=== PATIENT | female | born 1945 | race Caucasian/White ===

== ENCOUNTER 2018-02-04 17:01 | Emergency (ER) | payer SELFPAY ==
[~2018-02-04] VITALS: Ht 152.4 cm; Wt 74.8 kg
[2018-02-04 17:05] VITALS: Ht 152.4 cm; Wt 74.8 kg
[2018-02-04 18:07] LABS: PLATELET COUNT 178 x10^3mcL (130-400)
[2018-02-04 18:14] LABS: CARBON DIOXIDE 32.5 mmol/L (21-32); CHLORIDE SERUM 104 mmol/L (98-107); CREATININE SERUM 0.8 mg/dL (0.6-1.0); GLUCOSE SERUM 107 mg/dL (74-106); POTASSIUM SERUM 4.1 mmol/L (3.5-5.1); SODIUM SERUM 140 mmol/L (136-145)
[2018-02-04 18:18] LABS: ALKALINE PHOSPHATASE 91 U/L (46-116); ALT/SGPT 23 U/L (14-59); AST/SGOT 39 U/L (15-37); BILIRUBIN TOTAL 0.3 mg/dL (0.20-1.00); TOTAL PROTEIN, SERUM 7.3 g/dL (6.4-8.2)
[2018-02-04 18:23] LABS: ALBUMIN 2.8 g/dL (3.4-5.0)
[2018-02-04 18:50] LABS: RED CELL DISTRIBUTION WIDTH 18.1 % (11.5-14.5)
[2018-02-04 20:31] VITALS: BP 148/90
== END 2018-02-04 20:31 | disposition short-term general hospital (02) ==
LOC: ED 17:01
PROVIDERS: Emergency Medicine
DX: R04.0 Epistaxis (principal); I10 Essential (primary) hypertension; E78.00 Pure hypercholesterolemia, unspecified
CPT/HCPCS: 83880